=== PATIENT | female | born 1955 | race Caucasian/White ===

== ENCOUNTER 2024-09-04 14:22 | Inpatient (IN) | payer MEDICARE, OTHER ==
[~2024-09-04] VITALS: Ht 157.5 cm; Wt 59.6 kg
[2024-09-04] MEDS ORDERED: ACETAMINOPHEN 500 MG TAB PO ONE (14:30)
[2024-09-04] MEDS ORDERED: CEFTRIAXONE SODIUM 2 GM in SODIUM CHLORIDE 0.9% 100 ML IV ONE (14:30)
[2024-09-04] MEDS ORDERED: SODIUM CHLORIDE 0.9% 1,000 ML IV ONE (14:30)
[2024-09-04] MEDS ORDERED: CEFTRIAXONE SODIUM 2 GM VIAL ONE (14:33)
[2024-09-04 14:40] LABS: BASOPHILS 0.3 % (0-2); EOSINOPHILS 0.1 % (0-6); HEMATOCRIT 43.7 % (35.0-50.0); HEMOGLOBIN 14.9 g/dL (12.0-18.0); LYMPHOCYTES 18.8 % (24-44); MCH 32.3 (27-36); MCHC 34.1 g/dl (30-36); MCV 94.7 fl (81-99); MONOCYTES 17.9 % (0-12); NEUTROPHILS 62.9 % (39-80); PLATELET COUNT 256 K/uL (140-440); RBC 4.62 M/ul (4.3-5.7); RDW 15.3 (10.5-15.0)
[2024-09-04] MEDS ORDERED: ALBUTEROL SULFATE 0.083% 3 ML VIAL INH ONE (15:00)
[2024-09-04 15:01] LABS: ALBUMIN 3.1 g/dL (3.4-5.0); ALBUMIN/GLOBULIN RATIO 0.86 (1.1-2.4); ANION GAP 13.1 (7-21); BILIRUBIN, TOTAL 0.4 mg/dL (0.2-1.0); BUN/CREATININE RATIO 28.57 (6.0-28.6); CALCIUM 8.4 mg/dL (8.5-10.1); CREATININE, SERUM 0.7 mg/dL (0.55-1.02); POTASSIUM 4.1 mmol/L (3.5-5.1); PROTEIN, TOTAL 6.7 g/dL (6.4-8.2)
[2024-09-04 15:06] LABS: LACTIC ACID, BLOOD 1.4 mmol/L (0.4-2.0)
[2024-09-04 15:34] LABS: INFLUENZA B NAA NEGATIVE (NEGATIVE); RESPIRATORY SYNCYTIAL VIR NAA NEGATIVE (NEGATIVE)
[2024-09-04] MEDS ORDERED: methylPREDNISolone SOD SUCC 125 MG/2 ML VIAL IV ONE (16:00)
[2024-09-04] MEDS ORDERED: OSELTAMIVIR PHOSPHATE 75 MG CAP PO ONE (16:00)
[2024-09-04] MEDS ORDERED: ALBUTEROL/IPRATROPIUM 3 ML NEB INH ONE (17:30)
[2024-09-04] MEDS ORDERED: ondansetron HCL 4 MG/2 ML VIAL IV PRN (18:45)
[2024-09-04] MEDS ORDERED: ACETAMINOPHEN 325 MG TAB PO PRN (18:45)
[2024-09-04] MEDS ORDERED: LORazepam 2 MG/ML VIAL IV/IM PRN (19:15)
[2024-09-04] MEDS ORDERED: OXYCODONE HCL 5 MG TAB PO PRN (19:15)
[2024-09-04 19:52] VITALS: BP 137/47
[2024-09-04 20:00] VITALS: BP 137/47
[2024-09-04] MEDS ORDERED: BUDESONIDE 0.5 MG/2 ML VIAL INH SCH (20:00)
[2024-09-04] MEDS ORDERED: ALBUTEROL/IPRATROPIUM 3 ML NEB INH SCH (20:00)
--- NOTE | 2024-09-04 20:04 | NUR ---
PATIENT ARRIVED TO THE FLOOR VIA STRETCHER. PATIENT ABLE TO PIVOT TRANSFER A SBA TO HOSPITAL BED. PATIENTS VITALS TAKEN AND RECORDED. PATIENT IS ON 1L VIA NC. PATIENT PLACED ON CPOX. PATIENT DENIES ANY SOB. PATIENT ASSESMENT COMPELETED. PATIENT ADMISSION COMPLETED BY APPLIANCE LINE ASSEMBLER. PATIENT IS AAOX4. SIGNIFICANT OTHER AT THE BEDSIDE. UPDATED ON PLAN OF CARE AND ALL QUESTIONS ANSWERED. CALL LIGHT IN REACH. ICE WATER PROVIDED.
--- NOTE | 2024-09-04 20:34 | NUR ---
GIULIA IS SITTING IN BED AWAKE WATCHING TV. SHE IS ON A 1L NC. HOB IS ELEVATED TO 39 DEGREES. GIULIA IS ABLE TO USE THE CORNET LEVEL 5 W/O DIFFICULTY OR S/S OF INCREASED RESPIRATORY DISTRESS.
[2024-09-04] MEDS ORDERED: DULOXETINE HCL 60 MG CAP PO SCH (21:00)
[2024-09-04] MEDS ORDERED: PREGABALIN 50 MG CAP PO SCH (21:00)
--- NOTE | 2024-09-04 21:30 | NUR ---
PATIENT IS RESTING IN BED. PATIENT ABLE TO EAT ABOUT HALF OF SANDWICH BOX. PATIENTS OM MEDS GIVEN PER ORDER. PATIENT DENIES ANY PAIN OR SOB. PATIENT REMAINS ON 1L VIA NC. CPOX IN USE. PATIENT DENIES ANY FURTHER NEEDS. CALL LIGHT IN REACH. AT BEDSIDE AND LINEN PROVIDED.
[2024-09-04] MEDS ORDERED: methylPREDNISolone SOD SUCC 40 MG/ML VIAL IV SCH (22:00)
--- NOTE | 2024-09-04 22:00 | NUR ---
PATIENT IS RESTING IN BED WITH EYES CLOSED, CPOX READINGS ARE WNL. NAD NOTED. CALL LIGHT IN REACH. RESTING ON COUCH AND DENIES ANY NEEDS.
[2024-09-05] VITALS (10 sets, daily range): BP systolic 122–152; BP diastolic 56–65
[2024-09-05] MEDS ORDERED: ALBUTEROL/IPRATROPIUM 3 ML NEB INH SCH
--- NOTE | 2024-09-05 00:36 | NUR ---
PATIENT IS RESTING IN BED WITH EYES CLOSED, CPOS READINGS ARE WNL. PATIENT REMAINS ON 1L VIA NC. NAD NOTED. CALL LIGHT IN REACH. ASLEEP ON COUCH.
--- NOTE | 2024-09-05 01:49 | NUR ---
GIULIA WAS ASLEEP AT MY 0035 CHECK. SHE IS ON A 1L NC.
--- NOTE | 2024-09-05 02:18 | NUR ---
PATIENT IS RESTING IN BED. PATIENTS VITALS TAKEN AND RECORDED. PATIENT DENIES THE NEED TO VOID AT THIS TIME. PATIENT DENIES ANY PAIN OR SOB. PATIENT REMAINS ON 1L VIA NC. CPOX IN USE. PATIENT DENIES ANY NEEDS. CALL LIGHT IN REACH.
--- NOTE | 2024-09-05 03:53 | NUR ---
PATIENT IS RESTING IN BED WITH EYES CLOSED, CPOX READINGS ARE WNL. NAD NOTED. CALL LIGHT IN REACH.
--- NOTE | 2024-09-05 04:20 | NUR ---
GIULIA IS AWAKE ON A 1L NC WATCHING TV W/HOB ELEVATED TO 49 DEGREES.
[2024-09-05] MEDS ORDERED: ALBUTEROL SULFATE 0.083% 3 ML VIAL INH PRN (04:30)
[2024-09-05 05:18] LABS: BASOPHILS 0.2 % (0-2); HEMOGLOBIN 13.4 g/dL (12.0-18.0); LYMPHOCYTES 12.6 % (24-44); MCHC 33.6 g/dl (30-36); MCV 95.3 fl (81-99); MONOCYTES 9.4 % (0-12); NEUTROPHILS 77.8 % (39-80); PLATELET COUNT 222 K/uL (140-440); RDW 15.1 (10.5-15.0)
[2024-09-05 05:36] LABS: ANION GAP 14.6 (7-21); BUN/CREATININE RATIO 28.33 (6.0-28.6); CALCIUM 8.2 mg/dL (8.5-10.1); CREATININE, SERUM 0.6 mg/dL (0.55-1.02); MAGNESIUM 1.9 mg/dL (1.8-2.4); POTASSIUM 3.6 mmol/L (3.5-5.1)
--- NOTE | 2024-09-05 06:43 | NUR ---
PATIENTS VITALS TAKEN AND RECORDED. PT UP TO BR AND ABLE TO VOID. PATIENT HAD BM. THIS RN ABLE TO SEND UA DUE TO CONTAMINANT OF BM IN URINE. PATIENT IS BACK IN BED RESTING. PATIENT BECAME SOB DURING ACTIVITY. PATIENT REMAINS ON 1L VIA NC. RT IN ROOM TO ADMIN NEB. PATIENT DENIES ANY FURTHER NEEDS. CALL LIGHT IN REACH.
[2024-09-05] MEDS ORDERED: THIAMINE HCL 100 MG TAB PO SCH (08:00)
[2024-09-05] MEDS ORDERED: FOLIC ACID 1 MG TAB PO SCH (08:00)
[2024-09-05] MEDS ORDERED: FAMOTIDINE 20 MG TAB PO SCH (09:00)
[2024-09-05] MEDS ORDERED: ENOXAPARIN SODIUM 40 MG/0.4 ML SYR SUB-Q SCH (09:00)
[2024-09-05] MEDS ORDERED: SERTRALINE HCL 100 MG TAB PO SCH (09:00)
[2024-09-05] MEDS ORDERED: MONTELUKAST SODIUM 10 MG TAB PO SCH (09:00)
[2024-09-05] MEDS ORDERED: OSELTAMIVIR PHOSPHATE 75 MG CAP PO SCH (09:00)
[2024-09-05 09:52] LABS: BILIRUBIN, URINE NEGATIVE (negative); BLOOD/HGB, URINE NEGATIVE (Negative); KETONE, URINE TRACE (Negative); LEUK ESTERASE, URINE SMALL (negative); NITRITE, URINE NEGATIVE (negative)
--- NOTE | 2024-09-05 09:57 | NUR ---
Patient awake, alert and oriented x3, no acute distress. Patient up to restroom to void, 200ml clear yellow urine noted. Patient is on 1L oxygen per nc, respirations non labored at rest. Patient reports she does get short of breath with exertion. Notable harsh cough. Tylenol 650mg po admin at this time for generalized pain. Pt tolerated breakfast well, fresh water provided to pt. Patient's at bedside. Vital signs stable, sp02 93% on 1L oxygen per nc. Patient instructed to call if she has needs.
[2024-09-05 09:58] LABS: EPITHELIAL CELLS, URINE SQUAMOUS 3+ /lpf (0-1+)
[2024-09-05 10:00] LABS: BACTERIA, URINE 2+ /hpf (negative); CASTS, URINE NONE SEEN \\lpf; COLLECTION TYPE, URINE CLEAN CATCH; CRYSTALS, URINE NONE SEEN (0-1+); REFLEX CULTURE, URINE No (No)
[2024-09-05] MEDS ORDERED: PHARMACY RENAL DOSE ADJUSTMENT 1 DOSE MISC PO SCH (12:00)
--- NOTE | 2024-09-05 13:02 | NUR ---
Patient in chair on phone, no notable distress, respirations non labored. SP02 93% on 1L oxygen per nc. Patient's at bedside. Personal supplies and call light within reach.
[2024-09-05] MEDS ORDERED: FAMOTIDINE40 MG PO (15:14)
[2024-09-05] MEDS ORDERED: LIDOCAINE1 EACH TD (15:16)
[2024-09-05] MEDS ORDERED: SYMBICORT 16010.2 GM INH (15:16)
[2024-09-05] MEDS ORDERED: AMLODIPINE BESYL5 MG PO (15:17)
[2024-09-05] MEDS ORDERED: ATORVASTATIN CA20 MG PO (15:17)
[2024-09-05] MEDS ORDERED: VENTOLIN HFA18 GM INH (15:17)
[2024-09-05] MEDS ORDERED: HYDROCODON-ACE1 EA10 PO (15:18)
[2024-09-05] MEDS ORDERED: LISINOPRIL40 MG PO (15:18)
[2024-09-05] MEDS ORDERED: MONTELUKAST SOD10 MG PO (15:18)
[2024-09-05] MEDS ORDERED: PREGABALIN200 MG PO (15:19)
[2024-09-05] MEDS ORDERED: POTASSIUM CHLO10 ME1 PO (15:19)
[2024-09-05] MEDS ORDERED: SERTRALINE HCL100 MG PO (15:19)
--- NOTE | 2024-09-05 15:55 | NUR ---
Pt in bed getting a breathing treatment by RT at this time.
--- NOTE | 2024-09-05 16:17 | NUR ---
Patient sitting up in bed, alert and oriented x3. Patient conversing with her at bedside. Patient reports frequently coughing post breathing treatments, education provided regarding anticipated medication side effect. Patient remains on 1L oxygen per nc, sp02 93% at this time. Fresh water at bedside. Call light within reach.
[2024-09-05] MEDS ORDERED: CYMBALTA30 MG PO (16:41)
[2024-09-05] MEDS ORDERED: METOPROLOL TART25 MG PO (16:42)
--- NOTE | 2024-09-05 16:43 | NUR ---
MED REC COMPLETE
--- NOTE | 2024-09-05 17:12 | NUR ---
ROUNDED ON PATIENT AND BROUGHT HER A DINNER TRAY. PATIENT HAD NO OTHER NEEDS AT THIS TIME. SHE IS SITTING UP IN BED AND HER CALL LIGHT IS IN REACH. FAMILY AT BEDSIDE.
--- NOTE | 2024-09-05 19:20 | NUR ---
RECEIVED REPORT FROM DAY SHIFT RN. PATIENT IS RESTING IN BED WATCHING TV. PATIENT REQUESTING TYLENOL. DAY SHIFT RN TO GIVE PRN TYLENOL.
--- NOTE | 2024-09-05 19:24 | NUR ---
Admin tyelnol 650mg po at this time for reports of 3/10 back pain.
[2024-09-05] MEDS ORDERED: methylPREDNISolone SOD SUCC 40 MG/ML VIAL IV SCH (21:00)
--- NOTE | 2024-09-05 21:19 | NUR ---
GIULIA IS ASLEEP IN BED ON A 1L NC W/HOB ELEVATED TO 48 DEGREES. SHE IS ABLE TO USE THE CORNET LEVEL 5 W/O DIFFICULTY OR S/S OF INCREASED RESPIRATORY DISTRESS.
--- NOTE | 2024-09-05 21:55 | NUR ---
PATIENTS VITALS TAKEN AND RECORDED. PATIENT DENIES THE NEED TO VOID AT THIS TIME. PATIENTS PM MEDS GIVEN PER ORDER. PATIENTS IV X2 FLUSHED AND SL PER ORDER. PATIENT DENIES ANY PAIN OR SOB. PAITENTS ASSESMENT COMPLETED. RT IN ROOM TO ADMIN [facility]. FRESH ICE WATER PROVIDED. PATIENT DENIES ANY FURTHER NEEDS. CALL LIGHT IN REACH.
--- NOTE | 2024-09-05 23:59 | NUR ---
GIULIA IS ASLEEP IN BED ON A 1L NC W/HOB ELEVATED TO 38 DEGREES.
[2024-09-06] VITALS (7 sets, daily range): BP systolic 143–152; BP diastolic 61–78
--- NOTE | 2024-09-06 00:10 | NUR ---
PATIENT IS RESTING IN BED WITH EYES CLOSED, CPOX READINGS ARE WNL. NAD NOTED. ASLEEP ON COUCH. CALL LIGHT IN REACH.
--- NOTE | 2024-09-06 02:17 | NUR ---
PATIENT TRIALED ON ROOM AIR. AFTER APPROX ONE HOUR PATIENT NOTED TO DESAT TO 86%. PATIENT PLACED BACK ON 1L VIA NC. CPOX IN USE. PATIENTS PROVIDED COFFEE. PATIENT CONTINUES TO REST IN BED WITH EYES CLOSED, CPOX READINGS ARE WNL. NAD NOTED. CALL LIGHT IN REACH.
--- NOTE | 2024-09-06 04:05 | NUR ---
GIULIA IS AWAKE WATCHING TV ON A 1L NC W/HOB ELEVATED TO 38 DEGREES.
--- NOTE | 2024-09-06 04:07 | NUR ---
PATIENT IS RESTING IN BED. RT IN ROOM TO ADMIN [facility] [place]. PATIENT DENIES ANY NEEDS. CALL LIGHT IN REACH.
--- NOTE | 2024-09-06 05:19 | NUR ---
PATIENTS VITALS TAKEN AND RECORDED. PATIENT UP TO BR AND ABLE TO VOID. PATIENT IS BACK IN BED RESTING. INTAKE AND OUTPUT RECORDED. PATIENT REMAINS ON 1L VIA NC. CPOX IN USE. PATIENT DENIES ANY PAIN OR SOB. FRESH ICE WATER PROVIDED. PATIENT AND PATIENTS UPDATED ON PLAN OF CARE FOR DAY AND ALL QUESTIONS ANSWERED. PATIENT DENIES ANY FURTHER NEEDS. CALL LIGHT IN REACH
[2024-09-06 05:44] LABS: HEMATOCRIT 39.8 % (35.0-50.0); HEMOGLOBIN 13.4 g/dL (12.0-18.0); LYMPHOCYTES 10.4 % (24-44); MCHC 33.6 g/dl (30-36); MCV 95.2 fl (81-99); MONOCYTES 10.4 % (0-12); NEUTROPHILS 79.2 % (39-80); PLATELET COUNT 260 K/uL (140-440); RBC 4.18 M/ul (4.3-5.7); RDW 15.2 (10.5-15.0)
[2024-09-06 05:48] LABS: ANION GAP 13.6 (7-21); BUN/CREATININE RATIO 28.3 (6.0-28.6); CALCIUM 8.6 mg/dL (8.5-10.1); CREATININE, SERUM 0.53 mg/dL (0.55-1.02); MAGNESIUM 1.9 mg/dL (1.8-2.4); POTASSIUM 3.6 mmol/L (3.5-5.1)
--- NOTE | 2024-09-06 06:05 | NUR ---
PATIENT IS RESTING IN BED WITH EYES CLOSED, CPOX READINGS ARE WNL. NAD NOTED. CALL LIGHT IN REACH.
--- NOTE | 2024-09-06 07:45 | NUR ---
Hourly rounding. Patient sleeping spouse at bedside
--- NOTE | 2024-09-06 07:50 | NUR ---
UR CLINICAL REVIEW: 2 MN FOR VERSALUS-PER [employer] PLANTER MEETS INPT FOR ASTHMA/COPD EXAC DUE TO INFLUENZA A MEDICARE INPT 09/04/24 @ 3944 ORDER MATCHES REG NO AUTH REQUIRED PER MEDICARE GUIDELINES DISCHARGE TO HOME WHEN STABLE
--- NOTE | 2024-09-06 07:52 | NUR ---
REPORT RECEIVED FROM VANI GUTIÉRREZ. PT AWAKE AND STATES SHE FEELS GOOD THIS MORNING. DENIES NEEDS ATT.
[2024-09-06] MEDS ORDERED: ALBUTEROL/IPRATROPIUM 3 ML NEB INH SCH (08:00)
--- NOTE | 2024-09-06 09:27 | NUR ---
CHANGED PT NASAL CANULA TO LONG ONE SHE WAS TAKING IT OFF TO USE THE RESTROOM. PT UP TO RESTROOM INDEPENDENTLY.
--- NOTE | 2024-09-06 10:40 | NUR ---
pt resting in bed with eyes closed. in room.
--- NOTE | 2024-09-06 10:44 | NUR ---
WHEN I WENT IN TO DO MORING VITALS, GOT PATIENT SET UP FOR HER SHOWER. AND NEW BED LINENS ARE IN HER ROOM. SHE WILL CALL WHEN SHE IS READY TO TAKE A SHOWER. DO TO HAVEING TO WRAP BOTH HER IVS UP.
--- NOTE | 2024-09-06 12:00 | NUR ---
PT TALKING WITH OCC THERAPY. DENIES NEEDS ATT.
--- NOTE | 2024-09-06 13:00 | NUR ---
PT GIVEN PRN FOR NECK, HEADACHE. GIVEN TICKET FOR DOWNSTAIRS. PT STATES SHE IS TIRED OF BEING IN THE HOSPITAL. CHANGED FINGER OX MONITOR OTHER ONE WAS SWEATY AND NOT FUNCTIONING GREAT.
--- NOTE | 2024-09-06 14:06 | NUR ---
faxed paperwork to clinic to establish pcp.
--- NOTE | 2024-09-06 14:15 | NUR ---
PT IN BATHROOM WITH JEAN CLAUDE HOUSTON, APPEARS TO BE SHOWERING.
--- NOTE | 2024-09-06 14:32 | NUR ---
INTO SEE PATIENT. PERSONAL INFORMATION REVIEWED. PATIENT LIVES IN A HOUSE WITH 15 STEPS. STATES SHE DOESNT HAVE DIFFCULTY DOING THEM AT [facility] BUT THINKS THEY WOULD BE HARD NOW. NO DME AT HOME. SHE LIVES WITH HER REESE. SHE DRIVES. THEY JUST MOVED HERE FROM [place]. THEY USE [employer]. TALKED WITH THEM ABOUT [employer]. THEY ALSO LIVE WITH HER SISTER AND BROTHER IN [place]. NO FUTHER CM NEEDS AT THIS TIME.
[2024-09-06] MEDS ORDERED: BENZONATATE 100 MG CAP PO PRN (15:30)
--- NOTE | 2024-09-06 15:56 | NUR ---
PT CALLED FOR COUGH MEDS. GIVEN EDUARDO GARCIA. PT STATES THEY WORK GREAT FOR HER.
--- NOTE | 2024-09-06 17:55 | NUR ---
PT ATE SOME OF DINNER, WASNT HER FAVORITE. DENIES NEEDS ATT. ENJOYED THE SHOWER TODAY. IN ROOM.
--- NOTE | 2024-09-06 19:33 | NUR ---
RECEIVED REPORT FROM CHIKA RN. PATIENT SITTING IN CHAIR, TALKING ON PHONE. FAMILY IN ROOM. DENIES NEEDS, CALL LIGHT IN REACH.
--- NOTE | 2024-09-06 21:46 | NUR ---
VS OBTAINED AND RECORDED, SCHEDULED MEDS ADMINISTERED. PATIENT AMBULATED TO RESTROOM WITHOUT DIFFICULTY. PATIENT REMAINS ON 1L NC, CPOX IN PLACE. ASSESSMENT COMPLETED. PATIENT GIVEN COFFEE PER REQUEST. DENIES OTHER NEEDS, CALL LIGHT IN REACH.
--- NOTE | 2024-09-06 22:20 | NUR ---
PATIENT SITTING UPRIGHT, WATCHING TV. PATIENT SO GIVEN INFORMATION ABOUT [place] IN THE MORNING PER REQUEST. PATIENT DENIES OTHER NEEDS, CALL LIGHT IN REACH. REPORTS PAEZ NOW 3/10 PAIN AFTER RECEIVING PRN MEDICATION.
--- NOTE | 2024-09-07 00:23 | NUR ---
PRN MEDICATION ADMIN FOR COUGH PER PATIENT REQUEST. PATIENT DENIES OTHER NEEDS, CALL LIGHT IN REACH.
--- NOTE | 2024-09-07 02:25 | NUR ---
ROUNDED ON PATIENT, PATIENT WOKE TO RN ENTERING ROOM. DENIES ANY NEEDS. RESP EVEN AND UNLABORED. CALL LIGHT IN REACH.
[2024-09-07 04:35] VITALS: BP 160/77
--- NOTE | 2024-09-07 04:36 | NUR ---
PATIENT SITTING UPRIGHT IN BED, GIVEN FRESH WATER. PATIENT REPORTS THAT SHE AMBULATED TO RESTROOM WELL WITH NO DIFFICULTY. VS OBTAINED AND RECORDED. DENIES FURTHER NEEDS, CALL LIGHT IN REACH.
[2024-09-07 05:49] LABS: BASOPHILS 0.2 % (0-2); HEMATOCRIT 38.6 % (35.0-50.0); HEMOGLOBIN 13.1 g/dL (12.0-18.0); LYMPHOCYTES 14.3 % (24-44); MCH 31.9 (27-36); MCHC 33.9 g/dl (30-36); MCV 94.1 fl (81-99); MONOCYTES 10.4 % (0-12); NEUTROPHILS 75.1 % (39-80); PLATELET COUNT 342 K/uL (140-440); RDW 15.1 (10.5-15.0)
[2024-09-07 06:01] LABS: ANION GAP 9.9 (7-21); BUN/CREATININE RATIO 27.02 (6.0-28.6); CALCIUM 8.4 mg/dL (8.5-10.1); CREATININE, SERUM 0.37 mg/dL (0.55-1.02); MAGNESIUM 1.8 mg/dL (1.8-2.4); POTASSIUM 3.9 mmol/L (3.5-5.1)
--- NOTE | 2024-09-07 06:44 | NUR ---
PATIENT SITTING UPRIGHT IN BED, GIVEN COFFEE PER REQUEST. PATIENT DENIES OTHER NEEDS, CALL LIGHT IN REACH.
--- NOTE | 2024-09-07 07:26 | NUR ---
REPORT RECEIVED FROM SIERRA LUDWIG
--- NOTE | 2024-09-07 07:53 | NUR ---
ASSESSMENT COMPLETE. PT RESTING IN BED WITH IN ROOM. PT HAS SOME EXP WHEEZES IN [place]AW[place] LOWER BASES, RT CALLED FOR TREATMENT. NO REQUESTS AT TIS TIME. CALL LIGHT WITHIN REACH. PT ON DROPLET PRECAUTIONS.
[2024-09-07] MEDS ORDERED: MAGNESIUM SULFATE 2 GM/50 ML BAG IV ONE (08:00)
[2024-09-07 09:04] VITALS: BP 153/77
--- NOTE | 2024-09-07 09:40 | NUR ---
PT GIVEN TYLENOL FOR HEADACH 07/26 REQUESTED. PT STATES HER NAUSEA HAS PASSED. NO OTHER REQUESTS AT THIS TIME. CALL LIGHT WITHIN REACH.
--- NOTE | 2024-09-07 10:40 | NUR ---
Upon entering the room I find Shawnee in bed, she does have 02 per NC, no respiratory distress is noted at this time. Shawnee is oriented to person, place, and time, and she answers questions appropriately. IMM letteris explained to Shawnee and the adult male in the room. Questions are answered, Shawnee states that she is anxious to return home. Letter is signed, and a signed copy of the letter is given to Shawnee. When Asked about her care, Shawnee shares "My care has been really good." Shawnee denies further questions or needs at this time.
--- NOTE | 2024-09-07 10:53 | NUR ---
PT RESTING IN BED, IN ROOM. PT HAS NO REQUESTS AT THIS TIME. CALL LIGHT WITHIN REACH.
[2024-09-07 11:49] VITALS: BP 153/77
[2024-09-07 13:18] VITALS: BP 148/61
--- NOTE | 2024-09-07 13:32 | NUR ---
PATIENT AND SIGNIFICANT OTHER IN ROOM. INFORMED PATIENT SHE HAS BEEN QUALIFIED FOR HOME OXYGEN AND WILL NEED TO HAVE IT SET UP AT HOME. PATIENT CHOICES FOR DME PROVIDED, REQUEST TO USE [facility] OUT OF [place]. ALSO REQUESTING A NEBULIZER. DR. ROMANO NOTIFIED.
--- NOTE | 2024-09-07 13:59 | NUR ---
CALLED AND NOTIFIED [facility] THAT PATIENT WILL BE DISCHARGING HOME TODAY. CHART FAXED TO [facility].
--- NOTE | 2024-09-07 14:30 | NUR ---
DR ROMANO IN TO SEE PT AND DISCUSS POC. ALSO IN ROOM. CALL LIGHT WITHIN REACH.
[2024-09-07] MEDS ORDERED: BENZONATATE100 MG PO (14:45)
[2024-09-07] MEDS ORDERED: OSELTAMIVIR PHO75 MG PO (14:45)
[2024-09-07 14:46] VITALS: BP 148/61
[2024-09-07] MEDS ORDERED: PREDNISONE20 MG PO (14:47)
[2024-09-07] MEDS ORDERED: IPRAT-ALBUT 0.5-3 ML INH (14:50)
--- NOTE | 2024-09-07 14:58 | NUR ---
OXYGEN AND NEBULIZER ORDERS, FACESHEET, NOTES FAXED TO [facility]. SPOKE WITH ROBERTO AT [facility], THEY WILL BE TO HER HOUSE IN 1-2 HOURS FOR HOME OXYGEN SET UP
--- NOTE | 2024-09-07 15:27 | NUR ---
PT NOT AVAILABLE FOR VISIT. PROVIDED PRAYER.
== END 2024-09-07 16:28 | disposition home or self-care (01) | DRG 193 ==
LOC: ED 14:22 → EDBD 18:43 → MS 18:43
PROVIDERS: Emergency Medicine; ADMIT Student in an Organized Health Care Education/Training Program; ATTEND Student in an Organized Health Care Education/Training Program
DX: J10.1 Influenza due to other identified influenza virus with other respiratory manifestations (principal); J96.01 Acute respiratory failure with hypoxia; J44.1 Chronic obstructive pulmonary disease with (acute) exacerbation; I10 Essential (primary) hypertension; G89.29 Other chronic pain; F39 Unspecified mood [affective] disorder; F17.210 Nicotine dependence, cigarettes, uncomplicated; F10.90 Alcohol use, unspecified, uncomplicated; E78.5 Hyperlipidemia, unspecified; K21.9 Gastro-esophageal reflux disease without esophagitis; Z99.81 Dependence on supplemental oxygen
CPT/HCPCS: 36415; 71045; 80048; 80053; 81001; 83605; 83735; 85025; 87040; 87502; 94640; 94667; 94668; 94761; 94762; 96361; 96365; 96375; 97110; 97161; 97166; 97530; 97535; 99285-25; 99406; A9270; J0696; J1650; J2405; J2919; J3475; J7030; U0002